=== PATIENT | male | born 1985 | race Caucasian/White ===

== ENCOUNTER 2024-01-20 13:56 | Emergency (ER) | payer OTHER ==
[~2024-01-20] VITALS: Ht 170.2 cm; Wt 59.4 kg
[2024-01-20] MEDS ORDERED: KETOROLAC TROMETHAMINE INJ 30 MG/ML VIAL ONE (14:26)
[2024-01-20] MEDS: KETOROLAC TROMETHAMINE INJ 60 MG/2 ML VIAL IM ONE (14:34)
[2024-01-20 19:54] VITALS: TEMP 98.2
[2024-01-20 21:33] VITALS: BP 122/85; O2SAT 99
== END 2024-01-20 21:36 | disposition short-term general hospital (02) ==
LOC: ER 14:00
DX: S22.32XA Fracture of one rib, left side, initial encounter for closed fracture (principal); J93.9 Pneumothorax, unspecified; Z20.822 Contact with and (suspected) exposure to COVID-19; W19.XXXA Unspecified fall, initial encounter; Y93.89 Activity, other specified; Y92.89 Other specified places as the place of occurrence of the external cause; Y99.8 Other external cause status
CPT/HCPCS: 99285; 71250; 87426; 96372; 71100; J1885